=== PATIENT | female | born 1975 | race Caucasian/White ===

== ENCOUNTER 2016-07-02 11:13 | Emergency (ER) | payer OTHER ==
[~2016-07-02] VITALS: Ht 167.6 cm; Wt 121.0 kg
[~2016-07-02 11:13] MED LIST: AMOX1TAB12 PO
--- OUTSIDE RECORDS SUMMARY | 2016-07-02 11:17 | XMS REPORT | Continuity of Care Document ---
Author Author [facility] Address Unknown Phone Unavailable Allergies Active Description Code Type Severity Reaction Onset Reported/Identified Relationship to Patient Clinical Status Yes acetaminophen [id number] Drug Allergy Unknown N/A 06/03/2015 Yes dextromethorphan [id number] Drug Allergy Unknown N/A 06/03/2015 Yes guaifenesin [id number] Drug Allergy Unknown N/A 06/03/2015 Yes levofloxacin [id number] Drug Allergy Unknown N/A 06/03/2015 Yes oxycodone [id number] Drug Allergy Unknown N/A 06/03/2015 Yes theophylline [id number] Drug Allergy Unknown N/A 06/03/2015 Medications Problems Date Dx Coded Attending Type Code Diagnosis Diagnosed By 01/19/1399 CHERRI GUTIERREZ MD Ot E86.0 DEHYDRATION 01/19/1399 CHERRI GUTIERREZ MD Ot K52.9 NONINFECTIVE GASTROENTERITIS AND COLITIS 01/21/2014 Olvin Floyd MD Ot 466.0 12/24/2014 Olvin Floyd MD Ot 466.0 12/24/2014 ALIX GALINDO [employer] AIDE Ot 780.79 12/24/2014 ALIX GALINDO [employer] AIDE Ot 786.2 03/09/2015 CHERRI GUTIERREZ MD Ot E28.2 03/09/2015 CHERRI GUTIERREZ MD Ot E66.01 03/09/2015 CHERRI GUTIERREZ MD Ot E88.81 03/09/2015 CHERRI GUTIERREZ MD Ot G51.0 03/09/2015 CHERRI GUTIERREZ MD Ot K21.9 03/09/2015 CHERRI GUTIERREZ MD Ot Z91.048 03/10/2015 ANDRES RODRIGUEZ Ot J32.9 06/03/2015 CHERRI GUTIERREZ MD Ot E86.0 DEHYDRATION 06/03/2015 CHERRI GUTIERREZ MD Ot K52.9 NONINFECTIVE GASTROENTERITIS AND COLITIS 07/02/2015 CHERRI GUTIERREZ MD Ot R10.30 LOWER ABDOMINAL PAIN, UNSPECIFIED 07/02/2015 CHERRI GUTIERREZ MD Ot R30.0 DYSURIA 07/06/2015 CHERRI GUTIERREZ MD Ot R10.30 LOWER ABDOMINAL PAIN, UNSPECIFIED 07/06/2015 CHERRI GUTIERREZ MD Ot R30.0 DYSURIA 08/08/2015 CHERRI GUTIERREZ MD Ot R10.30 LOWER ABDOMINAL PAIN, UNSPECIFIED 08/08/2015 CHERRI GUTIERREZ MD Ot R30.0 DYSURIA 01/12/2016 Olvin Floyd MD Ot 466.0 ACUTE BRONCHITIS 01/12/2016 ALIX GALINDO [employer] Ot 780.79 OTH MALAISE FATIGUE 01/12/2016 ALIX GALINDO [employer] Ot 786.2 COUGH 01/12/2016 ANDRES RODRIGUEZ Ot J32.9 CHRONIC SINUSITIS, UNSPECIFIED 01/12/2016 CHERRI GUTIERREZ MD Ot E28.2 POLYCYSTIC OVARIAN SYNDROME 01/12/2016 CHERRI GUTIERREZ MD Ot E66.01 MORBID (SEVERE) OBESITY DUE TO EXCESS CA 01/12/2016 CHERRI GUTIERREZ MD Ot E88.81 METABOLIC SYNDROME 01/12/2016 CHERRI GUTIERREZ MD Ot 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 01/12/2016 CHERRI GUTIERREZ MD Ot K21.9 GASTRO-ESOPHAGEAL REFLUX DISEASE WITHOUT 01/12/2016 CHERRI GUTIERREZ MD Ot Z91.048 OTHER NONMEDICINAL SUBSTANCE ALLERGY STA 01/12/2016 CHERRI GUTIERREZ MD Ot R10.30 LOWER ABDOMINAL PAIN, UNSPECIFIED 01/12/2016 CHERRI GUTIERREZ MD Ot R30.0 DYSURIA 01/15/2016 Olvin Floyd MD Ot 466.0 ACUTE BRONCHITIS 01/15/2016 ALIX GALINDO [employer] AIDE Ot 780.79 OTH MALAISE FATIGUE 01/15/2016 ALIX GALINDO [employer] AIDE Ot 786.2 COUGH 01/15/2016 ANDRES RODRIGUEZ Ot J32.9 CHRONIC SINUSITIS, UNSPECIFIED 01/15/2016 CHERRI GUTIERREZ MD Ot E28.2 POLYCYSTIC OVARIAN SYNDROME 01/15/2016 CHERRI GUTIERREZ MD Ot E66.01 MORBID (SEVERE) OBESITY DUE TO EXCESS CA 01/15/2016 CHERRI GUTIERREZ MD Ot E88.81 METABOLIC SYNDROME 01/15/2016 CHERRI GUTIERREZ MD Ot 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 01/15/2016 CHERRI GUTIERREZ MD Ot K21.9 GASTRO-ESOPHAGEAL REFLUX DISEASE WITHOUT 01/15/2016 CHERRI GUTIERREZ MD Ot Z91.048 OTHER NONMEDICINAL SUBSTANCE ALLERGY STA 01/15/2016 CHERRI GUTIERREZ MD Ot R10.30 LOWER ABDOMINAL PAIN, UNSPECIFIED 01/15/2016 CHERRI GUTIERREZ MD Ot R30.0 DYSURIA 01/20/2016 ANDRES RODRIGUEZ Ot J01.00 ACUTE MAXILLARY SINUSITIS, UNSPECIFIED 01/20/2016 ANDRES RODRIGUEZ Ot R05 COUGH 01/22/2016 ANDRES RODRIGUEZ Ot J01.00 ACUTE MAXILLARY SINUSITIS, UNSPECIFIED 01/22/2016 ANDRES RODRIGUEZ Ot R05 COUGH 03/22/2016 ANDRES RODRIGUEZ Ot J01.00 ACUTE MAXILLARY SINUSITIS, UNSPECIFIED 03/22/2016 ANDRES RODRIGUEZ Ot R05 COUGH Procedures Results Encounters ACCT No. Visit Date/Time Discharge Status Pt. Type Provider Facility Loc./Unit Complaint [id number] 06/03/2015 11:17:00 2015 14:00:00 DIS Outpatient CHERRI GUTIERREZ MD [facility] EUOP [id number] 01/20/2015 08:40:00 2014 23:59:59 [id number] 12/24/2014 17:39:00 2014 23:59:59 CLS Outpatient ANDRES RODRIGUEZ [facility] [id number] 01/21/2014 11:16:00 2013 23:59:59 CLS Outpatient WILGERS, ALIX L [facility] LAB LAB DROP OFF FROM [facility] [id number] 01/21/2014 11:24:00 2013 11:24:00 ALIX Dudley [facility] LAB LAB DROP OFF [id number] 01/29/2013 10:05:00 2012 23:59:59 CLS Outpatient [place] RAINEY, Olvin Diaz [facility] RT [id number] 01/12/2016 15:38:00 ACT Outpatient CHARLENE POTTER, ANDRES Seg[facility] [id number] 06/30/2015 15:49:00 ACT Outpatient TISHA GOODMAN MD , CHERRI Laguna [facility] LAB LAB DROP OFF: DR GUTIERREZ
--- OUTSIDE RECORDS SUMMARY | 2016-07-02 11:18 | XMS REPORT | Continuity of Care Document ---
Author Author [facility] Address Unknown Phone Unavailable Allergies Active Description Code Type Severity Reaction Onset Reported/Identified Relationship to Patient Clinical Status Yes acetaminophen [id number] Drug Allergy Unknown N/A 06/03/2015 Yes dextromethorphan [id number] Drug Allergy Unknown N/A 06/03/2015 Yes guaifenesin [id number] Drug Allergy Unknown N/A 06/03/2015 Yes levofloxacin [id number] Drug Allergy Unknown N/A 06/03/2015 Yes oxycodone [id number] Drug Allergy Unknown N/A 06/03/2015 Yes theophylline [id number] Drug Allergy Unknown N/A 06/03/2015 Medications Problems Date Dx Coded Attending Type Code Diagnosis Diagnosed By 01/19/1399 CHERRI GUTIERREZ MD Ot E86.0 DEHYDRATION 01/19/1399 CHERRI GUTIERREZ MD Ot K52.9 NONINFECTIVE GASTROENTERITIS AND COLITIS 01/21/2014 Olvin Floyd MD Ot 466.0 12/24/2014 Olvin Floyd MD Ot 466.0 12/24/2014 ALIX GALINDO [employer] Ot 780.79 12/24/2014 ALIX GALINDO [employer] Ot 786.2 03/09/2015 CHERRI GUTIERREZ MD Ot [...] Ot 466.0 ACUTE BRONCHITIS 01/12/2016 ALIX GALINDO [employer] Ot 780.79 OTH MALAISE FATIGUE 01/12/2016 ALIX GALINDO [employer] MAKER Ot 786.2 COUGH 01/12/2016 ANDRES RODRIGUEZ Ot [...] Ot 466.0 ACUTE BRONCHITIS 01/15/2016 ALIX GALINDO [employer] MAK[employer] Ot 780.79 OTH MALAISE FATIGUE 01/15/2016 ALIX GALINDO [employer] Ot 786.2 COUGH 01/15/2016 ANDRES RODRIGUEZ Ot [...] Status Pt. Type Provider Facility Loc./Unit Complaint [id number] 06/03/2015 11:17:00 2015 14:00:00 DIS Outpatient CHERRI GUTIERREZ MD [facility] EUOP [id number] 01/20/2015 08:40:00 2014 23:59:59 [id number] 12/24/2014 17:39:00 2014 23:59:59 CLS Outpatient ANDRES RODRIGUEZ [facility] [id number] 01/21/2014 11:16:00 2013 23:59:59 CLS Outpatient WILGERS, ALIX L [facility] LAB LAB DROP OFF FROM [facility] [id number] 01/21/2014 11:24:00 2013 11:24:00 ALIX Dudley [facility] LAB LAB DROP OFF [id number] 01/29/2013 10:05:00 2012 23:59:59 CLS Outpatient [place] RAINEY, Olvin Diaz [facility] RT [id number] 01/12/2016 15:38:00 ACT Outpatient CHARLENE POTTER, ANDRES Segov[facility] [id number] 06/30/2015 15:49:00 ACT Outpatient TISHA GOODMAN MD , CHERRI Laguna [facility] LAB LAB DROP OFF: DR GUTIERREZ
[2016-07-02] MEDS ORDERED: KETOROLAC 30 MG/ML (TORADOL) 1 ML VIAL IV ONE (11:35)
[2016-07-02] MEDS ORDERED: SODIUM CHLORIDE FLUSH 10 ML SYR IV PRN (11:35)
[2016-07-02] MEDS ORDERED: SODIUM CHLORIDE FLUSH 3 ML SYR IV ONE (11:35)
[2016-07-02] MEDS ORDERED: HYDROmorphone 1 MG/ML (DILAUDID) SYRINGE IV ONE (11:35)
[2016-07-02] MEDS ORDERED: ONDANSETRON 2 MG/ML (Z0FRAN) 2 ML VIAL IV ONE (11:35)
[2016-07-02 12:02] LABS: BASOPHILS % (AUTO) 0 % (0-2); EOSINOPHILS % (AUTO) 0 % (0-4); LYMPHOCYTES # (AUTO) 1.5 X10^3; MEAN CORPUSCULAR HEMOGLOBIN 29.6 PG (26.0-34.0); MEAN CORPUSCULAR HGB CONC 34.5 g/dL (31.0-37.0); MEAN CORPUSCULAR VOLUME 86 FL (80-100); MEAN PLATELET VOLUME 9.2 FL (6.0-9.5); MONOCYTES # (AUTO) 1.1 X10^3; MONOCYTES % (AUTO) 7 % (3-11); NEUTROPHILS # (AUTO) 12.3 X10^3; NEUTROPHILS % (AUTO) 82 % (51-67); PLATELET COUNT 308 10^3uL (150-450); WHITE BLOOD COUNT 15.04 10^3uL (4.0-11.0)
[2016-07-02 12:10] LABS: BILIRUBIN,URINE Negative (Negative); CLARITY,URINE Clear; COLOR,URINE Yellow; GLUCOSE, URINE (UA) Negative (Negative); LEUKOCYTE ESTERASE ,URINE Negative (Negative); UROBILINOGEN,URINE 0.2 mg/dL (0.2-1.0)
[2016-07-02 12:15] LABS: ALBUMIN 4.5 g/dL (3.4-5.0); ALKALINE PHOSPHATASE 80 U/L (38-126); ANION GAP 17.6 MEQ/L (3-15); BUN/CREATININE RATIO 19 (10-20); CALCULATED IONIZED CALCIUM 3.7 mg/dL (3.8-4.6); TOTAL PROTEIN 8.1 g/dL (6.4-8.5)
[2016-07-02 12:21] LABS: RBC,URINE 20-50 /HPF; URINE CENTRIFUGED VOLUME 12 mL
[2016-07-02 12:22] LABS: AMORPHOUS SEDIMENT,UR 1+ /HPF; AMPHETAMINE SCREEN, URINE Negative (Negative); CANNABINOID SCREEN, URINE Negative (Negative); METHAMPHETAMINE SCREEN URINE S NEGATIVE (NEGATIVE); OPIATE SCREEN URINE Negative (Negative); PROPOXYPHENE STAT NEGATIVE (NEGATIVE)
[2016-07-02] MEDS ORDERED: MONT4TAB8 PO (12:25)
[2016-07-02] MEDS ORDERED: PRM25T PO (13:53)
[2016-07-02] MEDS ORDERED: HYDR-3702 PO (13:53)
--- NOTE | 2016-07-02 14:01 | Diagnostic Imaging Report ---
PROCEDURE: CT abdomen and pelvis without contrast. TECHNIQUE: Multiple contiguous axial images were obtained through the abdomen and pelvis without the use of intravenous contrast. DATE: July 02, 2016. COMPARISON: CT abdomen and pelvis February 14, 2010. INDICATION: 40-year-old female, hematuria and left flank pain. FINDINGS: There is very mild atelectasis in the right lower lobe. Additional visualized portions of the lung bases are grossly clear. The heart is not enlarged. There is no pericardial effusion. The liver is normal in size and contour. The patient is status post cholecystectomy. There is no intrahepatic or extrahepatic bile duct dilation. The pancreatic parenchyma is unremarkable. There is an accessory splenule on axial image 47. The spleen is not enlarged. The adrenal glands are unremarkable. There is a stone at the left ureterovesical junction which measures 4.5 mm in size on axial image 148. There is mild upstream dilation of the left ureter without clint hydronephrosis. There is a punctate nonobstructing left renal stone on axial image 61 and additional punctate nonobstructing left renal stone on axial image 57. There is asymmetric left perinephric stranding. There are subcentimeter exophytic right renal lesions which are too small to characterize. There is no right-sided hydronephrosis. There is a nonobstructing right renal stone on coronal image 59 measuring 1-2 mm in size. There is no identified right ureteral stone. The urinary bladder is unremarkable in appearance. The uterus is not seen and may be surgically absent. The intestinal tract is not distended. There is no free intraperitoneal air. There is no drainable fluid collection. There is no free pelvic fluid. There are mild atherosclerotic calcifications noted. There is no identified abnormally enlarged lymph node within the abdomen or pelvis which meets CT size criteria for adenopathy. There is severe disc height loss with prominent endplate degenerative change adjacent to the L4-L5 disc space. There are also degenerative endplate changes at L5-S1. There are multilevel additional degenerative changes of the thoracolumbar spine. 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 There is no identified acute bony abnormality. IMPRESSION: CT ABDOMEN AND PELVIS. 1. 4.5 mm stone at the left ureterovesical junction without clint hydronephrosis. Additional nonobstructing punctate renal stones bilaterally. Dictated by: Dictated on workstation # [id number]
[2016-07-02 14:23] VITALS: BP 123/62
== END 2016-07-02 14:26 | disposition home or self-care (01) ==
LOC: ED 11:14
DX: N20.1 Calculus of ureter (principal); R11.2 Nausea with vomiting, unspecified
CPT/HCPCS: 36415; 74176; 80053; 80307; 80320; 81003; 81015; 85025; 86140; 96361; 96374; 96375; 99283; J1170; J1885; J2405; J7030

== ENCOUNTER → 2016-07-06 | Outpatient (REF) | payer OTHER ==
[~2016-07-06] MED LIST changes: +HYDR-3702 PO; +MONT4TAB8 PO; +PRM25T PO
== END ==
LOC: LAB 16:41
PROVIDERS: ATTEND Physician Assistant Surgical
DX: N20.0 Calculus of kidney (principal)
CPT/HCPCS: 82365